=== PATIENT | female | born 1965 | race African-American/Black ===

== ENCOUNTER 2018-10-01 03:24 | Emergency (ER) | payer OTHER ==
[~2018-10-01] VITALS: Ht 165.1 cm; Wt 82.0 kg
[2018-10-01] MEDS ORDERED: ONDANSETRON HCL 4MG/2ML INJ IV STA (03:43)
[2018-10-01] MEDS ORDERED: SODIUM CHLORIDE 0.9% 1,000 ML IV ONE (03:43)
[2018-10-01] MEDS ORDERED: METHYLPREDNISOLONE SOD SUCC 125 MG/2 ML VIAL IV ONE (03:45)
[2018-10-01] MEDS ORDERED: FAMOTIDINE 20MG/2ML VIAL IV ONE (03:45)
[2018-10-01] MEDS ORDERED: IPRATROPIUM/ALBUTEROL 0.5-3(2.5)MG/3ML NEB HHN ONE (03:45)
[2018-10-01] MEDS ORDERED: DIPHENHYDRAMINE 50MG/ML VIAL IV ONE (03:45)
[2018-10-01] MEDS ORDERED: ACETAMINOPHEN 325MG TABLET PO ONE (04:45)
[2018-10-01 04:56] LABS: BASOPHILS % 0.4 % (0.0-2.0); EOSINOPHILS % 4.9 % (0.0-5.0); HEMATOCRIT. 39.8 % (36.0-48.0); HEMOGLOBIN. 13.2 g/dL (12.0-16.0); LYMPHOCYTES % 35.3 % (20.0-50.0); MEAN CORPUSCULAR HEMOGLOBIN 30.8 pg (28.0-32.0); MEAN CORPUSCULAR VOLUME 92.7 fL (81.0-99.0); MEAN PLATELET VOLUME 7.6 fl (7.4-10.4); MONOCYTES % 5.1 % (2.0-8.0); NEUTROPHILS % 54.3 % (40.0-76.0); PLATELET 307 x1000/uL (130-400); RED BLOOD CELL COUNT 4.29 mill/uL (4.2-5.4); RED CELL DISTRIBUTION WIDTH 13.4 % (11.6-14.6)
[2018-10-01 05:00] LABS: CHLORIDE 104 mEq/L (98-107); INR 1.1; PARTIAL THROMBOPLASTIN TIME 25.6 sec (23.4-31.0); PROTHROMBIN TIME 10.6 sec (9.1-11.1)
[2018-10-01 05:04] LABS: ETHANOL BLOOD < 10 mg/dL
[2018-10-01] MEDS ORDERED: TRAMADOL 50MG TABLET PO ONE (06:15)
[2018-10-01 06:34] VITALS: BP 11/69
== END 2018-10-01 06:37 | disposition home or self-care (01) ==
LOC: ER 03:24
DX: T39.311A Poisoning by propionic acid derivatives, accidental (unintentional), initial encounter (principal); L27.0 Generalized skin eruption due to drugs and medicaments taken internally; J45.909 Unspecified asthma, uncomplicated; E11.9 Type 2 diabetes mellitus without complications; I45.10 Unspecified right bundle-branch block; Z88.3 Allergy status to other anti-infective agents; Z98.890 Other specified postprocedural states; Z88.2 Allergy status to sulfonamides; Z88.6 Allergy status to analgesic agent; Y92.018 Other place in single-family (private) house as the place of occurrence of the external cause
CPT/HCPCS: 36415; 71045; 80053; 83880; 84484; 85025; 85610; 85730; 93005; 96374; 96375; 99284; G0482; J1200; J2405; J2930; J3490; J7030; J7620